=== PATIENT | female | born 1935 | race Caucasian/White ===

== ENCOUNTER 2016-12-18 03:58 | Inpatient (IN) | payer MEDICARE, OTHER ==
[2016-12-18] VITALS (7 sets, daily range): BP systolic 147–188; BP diastolic 65–95; PULSE 58–98; RESP 14–20; O2SAT 93–99
[~2016-12-18] VITALS: Ht 152.4 cm; Wt 85.7 kg
[~2016-12-18 03:58] MED LIST: DIGO125T73 PO; GABA-500 PO; GABA-502 PO; GLPZ5T PO; INSLIS SUBQ; INSU100V7 SUBQ; LOSA25TA21 PO; METF1000 PO; NITR0.4T SL; RANI150C4 PO; ROSU5TAB PO; SOTA160T PO; WARF2TAB7 PO; WARF4TAB6 PO
--- NOTE | 2016-12-18 04:11 | ED.REPORT ---
HPI-Abd Pain F 40 and Over Date of Service Dec 18, 2016 ED Provider: Dr. Rancho Fuchs M.D. A 81 year old female with a history of diabetes, spinal stenosis, hypertension, hyperlipidemia, severe peripheral vascular disease, and atrial fibrillation on warfarin presents to the ED via EMS with back pain onset just prior to arrival, waking her up. The patient also reports abdominal pain as well as chronic arthritis and chronic numbness of the hands and feet. She denies shooting or radiating leg pain or other sciatic symptoms. Denies any urinary symptoms. EMS found the patient with a BP of 181/110 and otherwise normal vital signs. She was given 50mcg fentanyl en route. Nursing Notes Stated Complaint: BACK/ ABD PAIN Chief Complaint: Female Abdominal Pain Nursing Notes Reviewed: Yes Allergies: Coded Allergies: VIKA Inhibitors (Verified Allergy, Unknown, cough, 07/18/16) niacin (Verified Allergy, Unknown, flushing, 07/18/16) pantoprazole (Verified Allergy, Unknown, pancreatitis, 07/18/16) lorazepam (Verified Adverse Reaction, Severe, REQUIRED INTUBATION TOO DIFF. TO AWAKEN, 07/18/16) Scheduled Digoxin (Digoxin) 125 Mcg Tablet 125 MCG PO DAILY Gabapentin (Gabapentin) 100 Mg Capsule 100 MG PO AM Gabapentin (Gabapentin) 300 Mg Capsule 300 MG PO HS Glipizide (Glipizide) 5 Mg Tablet 10 MG PO BID Insulin Human Lispro (HumaLOG U100 Insulin Vial) 100 Unit/Ml Unit Unknown Dose SUBQ per sliding scale Check blood sugars before meals and at bedtime. Use correction factor only before meals. Blood Sugar Lispro Correction: <151, 0 units; 151-175, 1 unit; 176-200, 2 units; 201-225, 3 units; 226-250, 4 units; 251-275, 5 units; 276-300 , 6 units; 301-325, 7 units; 326-350, 8 units; 351-375, 9 units; 376-400, 10 units; >400, 12 units. Metformin (Glucophage) 1,000 Mg Tablet 500 MG PO BID Ranitidine (Ranitidine) 150 Mg Capsule 150 MG PO BID Rosuvastatin Calcium (Crestor) 5 Mg Tablet 5 MG PO Q2DAY Sotalol HCl (Sotalol) 160 Mg Tablet 160 MG PO BID Warfarin Sodium (Warfarin Sodium) 2 Mg Tablet 2 MG PO 5 x weeks Warfarin Sodium (Warfarin Sodium) 4 Mg Tablet 4 MG PO 2Xweekly Mon and Fri Scheduled PRN Insulin Glargine (Lantus U100 Insulin Vial) 100 Unit/Ml Vial 32 UNIT SUBQ BID PRN PRN diabetes Nitroglycerin SL (Nitrostat) 0.4 Mg Tab.subl 0.4 MG SL Q5MIN PRN PRN For Chest Pain Miscellaneous Medications Losartan Potassium (Losartan Potassium) 25 Mg Tablet 25 MG PO General Time Seen by MD: 04:10 Chief Complaint Other (Back Pain) Hx Obtained From: Patient Arrived By: Ambulance Sudden in Onset?: Yes Onset Occurred: Just prior to arrival Context of Onset: Sleeping Symptom Duration: Since onset Location: : Back: Diffuse Associated with: Denies: Diarrhea, Fever, Vomiting Pertinent Negative: Relieved by nothing Context Related History: Reports: Abdominal surgery Recent Healthcare: No recent doctor visit Past Medical History Past Medical History High cholesterol Vitiligo Diabetes Hypertension Atrial fibrillation Spinal stenosis Peripheral vascular disease Diabetic neuropathy severe Osteomyelitis finger Chronic renal insufficiency Past Surgical History Amputation of right distal phalynx Reports: Cholecystectomy Family History non-contributory Smoking History Never Smoker Social History Alcohol Use: Denies alcohol use Drug Use: Denies drug use Ambulatory Status Walker Review of Systems + Chronic arthritis - Stabbing leg pain Respiratory: Denies: Non-productive cough, Shortness of breath GI: Reports: Abdominal pain, Denies: Diarrhea, Vomiting Musculoskeletal: Reports: Back pain Complete sys rev & neg: except as marked. Neurologic: Reports: Numbness (Hands and feet, baseline) Physical Exam Vital Signs Vital Signs (First) Date Time Temp Pulse Resp B/P Pulse Ox O2 Delivery O2 Flow Rate FiO2 12/18/16 04:05 37.0 64 14 167/74 93 Room Air Initial VS: Reviewed Head / Eyes: Atraumatic, Normocephalic Skin: Warm, Dry, No cyanosis Neurologic: Alert, Oriented, Nonfocal Psychiatric: Mood/affect normal, Behavior normal, Normal thought content General/Constitutional: Awake, Alert, No acute distress Distress / Hydration: Positive: Dehydration mild Respiratory / Chest: Breath sounds NL, Breath sounds = bilat, No respiratory distress Cardiovascular: Heart rate NL, Regular rhythm, Heart sounds NL Periph CV / BP Differential: Positive: Capillary refill delayed Abdomen: Soft, Non-tender Back: Atraumatic Flank / Spine / Paraspinal: Positive: Lumbar spine tender..., Sacral spine tender... ENT: Airway patent Mouth: Positive: Mucous membranes dry Upper Extremity / MS: Full range of motion, Non-tender, No edema Vascular changes Necrotic black lesion of previous amputated right index finger Lower Extremity / Pelvis / MS: Full range of motion, Non-tender, No edema Vascular changes bilaterally Interpretation & Diagnostics URINE DIPSTICK: 1.015 sp gravity 5 pH Trace Leukocytes 250mg/dl Glucose ++ Moderate Ketones Normal Urobilinogen ~ 250 Patrice/ml Blood Otherwise Negative Lab Results Interpretation Result Diagram: 12/18/16 0420 12/18/16 042 Test 12/18/16 04:20 12/18/16 05:10 White Blood Count 12.0th/mm3 (3.8-10.1) Red Blood Count 4.72mil/mm3 (3.90-5.20) Hemoglobin 14.5g/dL (12.0-15.6) Hematocrit 44.8% (35.0-46.0) Mean Corpuscular Volume 94.9fL (81-100) Mean Corpuscular Hemoglobin 30.7pg (27.0-35.0) Mean Corpuscular Hemoglobin Concent 32.4% (32.0-37.0) Red Cell Distribution Width 14.2% (12.3-15.4) Platelet Count 152bil/L (150-400) Neutrophils (%) (Auto) 77.8% (40-74) Lymphocytes (%) (Auto) 12.7% (14-46) Monocytes (%) (Auto) 7.3% (4-12) Eosinophils (%) (Auto) 1.6% (0-5) Basophils (%) (Auto) 0.3% (0-3) Prothrombin Time 23.2sec (8.1-12.5) Prothromb Time International Ratio 2.13ratio Hold Blue Top Tube Received (Received) Sodium Level 141mEq/L (134-144) Potassium Level 4.5mEq/L (3.5-5.2) Chloride Level 103mEq/L (97-108) Carbon Dioxide Level 25mmol/L (18-29) Blood Urea Nitrogen 22mg/dL (8-27) Creatinine 1.25mg/dL (0.57-1.00) Estimat Glomerular Filtration Rate 59mL/min (>59) Glucose Level 216mg/dL (60-99) Calcium Level 8.8mg/dL (8.5-10.1) Magnesium Level 1.9mg/dL (1.6-2.6) Total Bilirubin 0.3mg/dL (0.0-1.2) Aspartate Amino Transf (AST/SGOT) 17U/L (0-50) Alanine Aminotransferase (ALT/SGPT) 19U/L (0-32) Alkaline Phosphatase 65U/L (25-165) Total Protein 6.5g/dL (6.4-8.4) Albumin 3.9g/dL (3.4-5.0) Lipase 49U/L (13-60) Hold Red Top Tube Received (Received) Hold Ibrahim Top Tube Received (Received) Digoxin Level 0.7nG/mL (0.9-2.0) Urine Color Bloody (YELLOW) Urine Appearance Cloudy (CLEAR,HAZY) Urine pH 6.0 (5.0-8.0) Urine Specific [place] 1.025 (1.003-1.035) Urine Protein 100mg/dL (NEG,TRACE) Urine Glucose (UA) 100mg/dL (NEGATIVE) Urine Ketones Negativemg/dL (NEGATIVE) Urine Occult Blood Large (NEGATIVE) Urine Nitrite Negative (NEGATIVE) Urine Bilirubin Negative (NEGATIVE) Urine Urobilinogen Normalmg/dL (NORMAL) Urine Leukocyte Esterase Trace (NEGATIVE) Urine RBC Packed/hpf (0-2) Urine WBC 0-5/hpf (0-5) Urine Epithelial Cells Few/hpf (NONE-MOD) Urine Crystals None seen (NONE SEEN) Urine Bacteria Moderate/hpf (NONE-FEW) Urine Hyaline Casts Rare/lpf (NONE) Urine Granular Casts None seen (NONE SEEN) Urine Waxy Casts None seen (NONE SEEN) Urine Red Blood Cell Casts None seen (NONE SEEN) Urine White Blood Cell Casts None seen (NONE SEEN) Urine Mucus None seen (None Seen) Urine Trichomonas None seen (NONE SEEN) Urine Yeast None (NONE SEEN) Urinalysis Comment None Urine Culture Reflexed Indicated Lab Results Interpretation: Urine is grossly bloody with minimal white cells. CT shows multiple stones layering along the right renal pelvis and possibly a stone distally, but without hydronephrosis. The kidney itself is swollen, with stranding all about suggesting prolonged hydronephrosis. Re-Eval/Medical Decision Med Decision/Clinical Course 81-year-old with severe diabetes and vascular disease and renal insufficiency, presents with flank pain and hematuria, improves to have multiple small stones in the right kidney. It appeared appears the right kidney itself is abnormal with stranding all about, enlarged parenchyma without current hydronephrosis. What appears to be a staghorn calculus resolves to multiple very small stones in the renal pelvis, which are clearly mobile and layering out. We can anticipate she will pass many of these in the near-term future. Source of Hx: Old records Re-Evaluation/Progress : Time of Eval: 05:01 Patient Status: Condition improved Re-Evaluation/Progress Note: Patient rechecked. Discussed patient's case with her family. Counseled Regarding: Diagnosis, Lab results Discharge & Departure Shift Change Sign-Out Response to Therapy: Improved Primary Impression: Ureteral colic Additional Impressions: Nephrolithiasis Renal insufficiency Unspecified hydronephrosis Anticoagulated on Coumadin Disposition: ADMITTED TO HOSPITAL Discharge Condition All VS Reviewed: Yes Condition: Improved Referrals: Jenae Burton MD (PCP) Sylvia Attestation Portions of this note were transcribed by Heather Cardona. I, Dr. Fuchs, personally performed the history, physical exam, and medical decision-making; I reviewed and confirmed the accuracy of the information in the transcribed note. Signed by: Sylvia Dominguez, 12/18/2016, 06:05 copies to: Jenae Burton MD, Christopher W MD Dec 18, 2016 04:11 HEATHER CARDONA Dec 18, 2016 04:20
[2016-12-18 04:37] LABS: BASOPHILS % (AUTO) 0.3 % (0-3); EOSINOPHILS % (AUTO) 1.6 % (0-5); MONOCYTES % (AUTO) 7.3 % (4-12); Mean Corpuscular Hemoglobin 30.7 pg (27.0-35.0); Mean Corpuscular Volume 94.9 fL (81-100); NEUTROPHILS % (AUTO) 77.8 % (40-74); Platelet Count 152 bil/L (150-400)
[2016-12-18 04:51] LABS: Magnesium 1.9 mg/dL (1.6-2.6)
[2016-12-18 05:27] LABS: APPEARANCE,URINE CLOUDY (CLEAR,HAZY); COLOR,URINE BLOODY (YELLOW); OCCULT BLOOD,URINE LARGE (NEGATIVE); UROBILINOGEN,URINE NORMAL (NORMAL)
[2016-12-18 05:38] LABS: INR 2.13 ratio
[2016-12-18] MEDS ORDERED: 0.9% Sodium Chloride 1,000 ML IV SCH (07:46)
[2016-12-18] MEDS ORDERED: Ondansetron 2 mg/mL 2 mL Inj IVPUSH PRN ×2 (07:50→15:30)
[2016-12-18] MEDS ORDERED: Alum-Mag Hydrox-Simeth 30 mL Suspension PO PRN ×2 (07:50→15:30)
--- NOTE | 2016-12-18 08:38 | NUR ---
Admit from ER Report received from ER nurse. patient at [facility]. denies pain or discomfort to abdomen at this time. will continue to monitor pain. Admit nurse at bed side.
[2016-12-18] MEDS ORDERED: INSU100V7 SUBQ (08:52)
[2016-12-18] MEDS ORDERED: METF500T4 PO (08:56)
[2016-12-18] MEDS ORDERED: ATRV10T PO (08:56)
--- NOTE | 2016-12-18 09:12 | DRSVH ---
PROCEDURE: CT ABDOMEN AND PELVIS WITHOUT CONTRAST ([id number]) INDICATIONS: Right flank pain and hematuria TECHNIQUE: After the administration of oral contrast, 5 mm thick sections acquired from the diaphragms to the sy mphysis. 5 mm coronal and sagittal reformats were performed. For radiation dose reduction, the foll owing was used: automated exposure control, adjustment of mA and/or kV according to patient size. COMPARISON: None. FINDINGS: Image quality: Excellent. ABDOMEN: Lung bases: Lung bases are clear. Heart size is borderline enlarged. Solid organs: Liver and spleen are normal in size. Gallbladder is surgically absent. Pancreas is n ormal in size. No adrenal nodules. There is asymmetric enlargement of the right kidney with perinephric stranding and fluid. Multiple re nal stones are identified in the right kidney including numerous small layering stones in the right r enal pelvis. No hydronephrosis or definite ureteral stones. No left renal stones or hydronephrosis. Peritoneum and bowel: Bowel loops demonstrate normal wall thickness and caliber. The appendix is nor mal in appearance. No free fluid or air. Nodes and vessels: No retroperitoneal or mesenteric adenopathy by size criteria. Aorta and inferior vena cava are normal in size. Miscellaneous: No ventral hernias. PELVIS: Genitourinary: There are numerous small foci of calcifications in the uterus. There is a small right ovarian cyst. The bladder wall is normal in thickness. No calcified bladder stones. Miscellaneous: No inguinal hernias or adenopathy. Bones: No suspicious bony lesions. There is periarticular sclerosis along the sacroiliac joints with mild erosive changes inferiorly. No vertebral body compression fractures. IMPRESSION: 1. Right nephrolithiasis with perinephric stranding and fluid but no definite obstructing ureteral st one identified. The findings may represent sequelae of a recently passed stone but the differential includes pyelonephritis. Recommend correlation clinically. Findings discussed with Dr. Guevara on 12/18/16 at 9:10 AM. Dictated by: Denzel Partida M.D. on 12/18/2016 at 8:40 Approved by: Denzel Partida M.D. on 12/18/2016 at 9:10
[2016-12-18] MEDS: cefTRIAXone Inj 2,000 MG in Dextrose 5% Minibag Plus 50 ML IV SCH (10:30)
--- NOTE | 2016-12-18 13:04 | NUR ---
Mentation/pain patient is alert and oriented X3. Able to make needs known. Stable vitals signs. Denies pain or discomfort to abdomen or flank pain. patient states," i hope that pain does not come back, i have no pain now." IV infusing to left arm with IF fluids as ordered by doctor. patient ate breakfast and denies pain to abdomen. family at bed side and asking about doctor. paged doctor and aware. family will bring CPAP from home this evening. call light with in reach for safety and verbalize the use of call light. Stable oxygen room air. patient's right finger next to thumb has small black blister and patient states," i burnt it about week ago accidentally when i was cooking." blister is clean dry intact with no open areas or drainage. lung sounds clear bilaterally. last BM yesterday per patient report. Continue to monitor abdomen pain, vital signs , and safety.
[2016-12-18] MEDS ORDERED: HYDROcodone-APAP 5-325 mg Tablet PO PRN (15:25)
[2016-12-18] MEDS ORDERED: HYDROmorphone 1 mg/mL Inj IVPUSH PRN (15:25)
[2016-12-18] MEDS ORDERED: Polyethylene Glycol (PEG) 17 Gm Powder PO PRN (15:30)
[2016-12-18] MEDS ORDERED: hydrALAZINE 20 mg/mL Inj IV PRN (15:45)
[2016-12-18] MEDS ORDERED: Glucose 40% Oral Gel 15 Gm Tube PO PRN (15:45)
--- NOTE | 2016-12-18 15:53 | PCM.HPMED ---
Subjective Date of Service Dec 18, 2016 Primary Provider: Admitting Physician: Lisa Guevara MD Primary Care Physician: Rufus Bazzi DO Attending Physician: Lisa Guevaar MD Admit Status: From the Emergency Department, Full Admit Chief Complaint: Right flank pain History of Present Illness: This is a 81-year-old female who awoke in the middle of the night with right sided flank pain. She also did notice some blood in her urine after she came to the emergency room. Her UA here did have many red blood cells with small amount of WBCs and moderate bacteria and few epithelial cells. She also had trace leukocyte esterase along with negative nitrites She denies any fevers chills did have some nausea but no vomiting. The nausea has resolved. She denies any history of known history of kidney stones. Her evaluation here includes a CT of abdomen and pelvis with contrast which results are as below: IMPRESSION: 1. Right nephrolithiasis with perinephric stranding and fluid but no definite obstructing ureteral stone identified. The findings may represent sequelae of a recently passed stone but the differential includes pyelonephritis. Recommend correlation clinically. Findings discussed with Dr. Guevara on 12/18/16 at 9:10 AM. Dictated by: Denzel Partida M.D. on 12/18/2016 at 8:40 Approved by: Denzel Partida M.D. on 12/18/2016 at 9:10 Review of Systems: All other review of systems are reviewed and are negative except for as in history of present illness Allergies Coded Allergies: VIKA Inhibitors (Verified Allergy, Unknown, cough, 07/18/16) niacin (Verified Allergy, Unknown, flushing, 07/18/16) pantoprazole (Verified Allergy, Unknown, pancreatitis, 07/18/16) lorazepam (Verified Adverse Reaction, Severe, REQUIRED INTUBATION TOO DIFF. TO AWAKEN, 07/18/16) Home Medications Scheduled Digoxin (Digoxin) 125 Mcg Tablet 125 MCG PO DAILY Gabapentin (Gabapentin) 100 Mg Capsule 100 MG PO AM Gabapentin (Gabapentin) 300 Mg Capsule 300 MG PO HS Glipizide (Glipizide) 5 Mg Tablet 10 MG PO BID Insulin Human Lispro (HumaLOG U100 Insulin Vial) 100 Unit/Ml Unit Unknown Dose SUBQ per sliding scale Check blood sugars before meals and at bedtime. Use correction factor only before meals. Blood Sugar Lispro Correction: <151, 0 units; 151-175, 1 unit; 176-200, 2 units; 201-225, 3 units; 226-250, 4 units; 251-275, 5 units; 276-300 , 6 units; 301-325, 7 units; 326-350, 8 units; 351-375, 9 units; 376-400, 10 units; >400, 12 units. Metformin (Glucophage) 1,000 Mg Tablet 500 MG PO BID Ranitidine (Ranitidine) 150 Mg Capsule 150 MG PO BID Rosuvastatin Calcium (Crestor) 5 Mg Tablet 5 MG PO Q2DAY Sotalol HCl (Sotalol) 160 Mg Tablet 160 MG PO BID Warfarin Sodium (Warfarin Sodium) 2 Mg Tablet 2 MG PO 5 x weeks Warfarin Sodium (Warfarin Sodium) 4 Mg Tablet 4 MG PO 2Xweekly Mon and Fri Scheduled PRN Insulin Glargine (Lantus U100 Insulin Vial) 100 Unit/Ml Vial 32 UNIT SUBQ BID PRN PRN diabetes Nitroglycerin SL (Nitrostat) 0.4 Mg Tab.subl 0.4 MG SL Q5MIN PRN PRN For Chest Pain Miscellaneous Medications Losartan Potassium (Losartan Potassium) 25 Mg Tablet 25 MG PO PMH Past Medical History High cholesterol Vitiligo Diabetes Hypertension Atrial fibrillation Spinal stenosis Peripheral vascular disease Diabetic neuropathy severe Osteomyelitis finger Chronic renal insufficiency Past Surgical History Amputation of right distal phalynx Reports: Cholecystectomy Family History History of diabetes Social History Hx Alcohol Use: No Hx Substance Use: No Hx Tobacco Use: No Smoking Status: Never Smoker Living Arrangement: with Family Exam Vital Signs Vital Sign - Last Date Time Temp Pulse Resp B/P Pulse Ox O2 Delivery O2 Flow Rate FiO2 12/18/16 13:57 36.6 58 18 188/68 96 Room Air Exam Constitutional: Obese female in no acute distress Head: Normocephalic atraumatic Eyes: PERRLA DC EOMI Neck: No adenopathy Chest: Clear to auscultation Cor: Regular rate and rhythm S1-S2 Abdomen: Obese soft nontender bowel sounds present. There is some tenderness over the right costovertebral angle to palpation Extremities: Trace bilateral pedal edema Skin: No rashes Psych: Mood and affect appropriate Neuro: Alert and oriented 3, motor strength is intact bilaterally Lab and Diagnostics Labs Laboratory Tests 72 Hours Test 12/18/16 04:20 12/18/16 05:10 White Blood Count 12.0th/mm3 (3.8-10.1) Red Blood Count 4.72mil/mm3 (3.90-5.20) Hemoglobin 14.5g/dL (12.0-15.6) Hematocrit 44.8% (35.0-46.0) Mean Corpuscular Volume 94.9fL (81-100) Mean Corpuscular Hemoglobin 30.7pg (27.0-35.0) Mean Corpuscular Hemoglobin Concent 32.4% (32.0-37.0) Red Cell Distribution Width 14.2% (12.3-15.4) Platelet Count 152bil/L (150-400) Neutrophils (%) (Auto) 77.8% (40-74) Lymphocytes (%) (Auto) 12.7% (14-46) Monocytes (%) (Auto) 7.3% (4-12) Eosinophils (%) (Auto) 1.6% (0-5) Basophils (%) (Auto) 0.3% (0-3) Prothrombin Time 23.2sec (8.1-12.5) Prothromb Time International Ratio 2.13ratio Hold Blue Top Tube Received (Received) Sodium Level 141mEq/L (134-144) Potassium Level 4.5mEq/L (3.5-5.2) Chloride Level 103mEq/L (97-108) Carbon Dioxide Level 25mmol/L (18-29) Blood Urea Nitrogen 22mg/dL (8-27) Creatinine 1.25mg/dL (0.57-1.00) Estimat Glomerular Filtration Rate 59mL/min (>59) Glucose Level 216mg/dL (60-99) Calcium Level 8.8mg/dL (8.5-10.1) Magnesium Level 1.9mg/dL (1.6-2.6) Total Bilirubin 0.3mg/dL (0.0-1.2) Aspartate Amino Transf (AST/SGOT) 17U/L (0-50) Alanine Aminotransferase (ALT/SGPT) 19U/L (0-32) Alkaline Phosphatase 65U/L (25-165) Total Protein 6.5g/dL (6.4-8.4) Albumin 3.9g/dL (3.4-5.0) Lipase 49U/L (13-60) Hold Red Top Tube Received (Received) Hold Ibrahim Top Tube Received (Received) Digoxin Level 0.7nG/mL (0.9-2.0) Urine Color Bloody (YELLOW) Urine Appearance Cloudy (CLEAR,HAZY) Urine pH 6.0 (5.0-8.0) Urine Specific [place] 1.025 (1.003-1.035) Urine Protein 100mg/dL (NEG,TRACE) Urine Glucose (UA) 100mg/dL (NEGATIVE) Urine Ketones Negativemg/dL (NEGATIVE) Urine Occult Blood Large (NEGATIVE) Urine Nitrite Negative (NEGATIVE) Urine Bilirubin Negative (NEGATIVE) Urine Urobilinogen Normalmg/dL (NORMAL) Urine Leukocyte Esterase Trace (NEGATIVE) Urine RBC Packed/hpf (0-2) Urine WBC 0-5/hpf (0-5) Urine Epithelial Cells Few/hpf (NONE-MOD) Urine Crystals None seen (NONE SEEN) Urine Bacteria Moderate/hpf (NONE-FEW) Urine Hyaline Casts Rare/lpf (NONE) Urine Granular Casts None seen (NONE SEEN) Urine Waxy Casts None seen (NONE SEEN) Urine Red Blood Cell Casts None seen (NONE SEEN) Urine White Blood Cell Casts None seen (NONE SEEN) Urine Mucus None seen (None Seen) Urine Trichomonas None seen (NONE SEEN) Urine Yeast None (NONE SEEN) Urinalysis Comment None Urine Culture Reflexed Indicated Result Diagram: 12/18/1641912/18/16419 X-Rays, CTs and MRIs PROCEDURE: CT ABDOMEN AND PELVIS WITHOUT CONTRAST ([id number]) INDICATIONS: Right flank pain and hematuria TECHNIQUE: After the administration of oral contrast, 5 mm thick sections acquired from the diaphragms to the symphysis. 5 mm coronal and sagittal reformats were performed. For radiation dose reduction, the following was used: automated exposure control, adjustment of mA and/or kV according to patient size. COMPARISON: None. FINDINGS: Image quality: Excellent. ABDOMEN: Lung bases: Lung bases are clear. Heart size is borderline enlarged. Solid organs: Liver and spleen are normal in size. Gallbladder is surgically absent. Pancreas is normal in size. No adrenal nodules. There is asymmetric enlargement of the right kidney with perinephric stranding and fluid. Multiple renal stones are identified in the right kidney including numerous small layering stones in the right renal pelvis. No hydronephrosis or definite ureteral stones. No left renal stones or hydronephrosis. Peritoneum and bowel: Bowel loops demonstrate normal wall thickness and caliber. The appendix is normal in appearance. No free fluid or air. Nodes and vessels: No retroperitoneal or mesenteric adenopathy by size criteria. Aorta and inferior vena cava are normal in size. Miscellaneous: No ventral hernias. PELVIS: Genitourinary: There are numerous small foci of calcifications in the uterus. There is a small right ovarian cyst. The bladder wall is normal in thickness. No calcified bladder stones. Miscellaneous: No inguinal hernias or adenopathy. Bones: No suspicious bony lesions. There is periarticular sclerosis along the sacroiliac joints with mild erosive changes inferiorly. No vertebral body compression fractures. IMPRESSION: 1. Right nephrolithiasis with perinephric stranding and fluid but no definite obstructing ureteral stone identified. The findings may represent sequelae of a recently passed stone but the differential includes pyelonephritis. Recommend correlation clinically. Findings discussed with Dr. Guevara on 12/18/16 at 9:10 AM. Dictated by: Denzel Partida M.D. on 12/18/2016 at 8:40 Approved by: Denzel Partida M.D. on 12/18/2016 at 9:10 Assessment & Plan # Possible pyelonephritis, acute, present on admission Initiate IV Rocephin 2 g daily Await urine culture and sensitivities IV fluid hydration #Hematuria, acute, present on admission May be related to above workup be secondary to possible renal stone as her R many of them seen but none within the ureter and one may have passed Strain urine Urology consult at by SHIRLEY Hayden # Atrial fibrillation, chronic, present on admission Continue with current medication regimen # Anticoagulation on warfarin, chronic, present on admission Pharmacy to manage # Type II diabetes, chronic, present on admission Continue with home regimen but will hold her metformin Placed on subcutaneous lispro medium dose protocol # DVT prophylaxis Therapeutic warfarin # CODE STATUS Full code Time spent 60 minutes Lisa Guevara MD Dec 18, 2016 15:53
--- NOTE | 2016-12-18 16:31 | PCM.CONPHA ---
Subjective Right flank pain Reason for Pharmacy Consult: Anticoagulation Management Assessment/Plan Assessment/Plan Warfarin Management by Pharmacy Indication: AFIB CHADS2-VASc: 6 Home Dose: Warfarin 4 mg Mon/Fri, 2 mg AOD INR Goal: 2-3 Duration: Unknown Wt: 84 kg Anticoagulation Trends Lab Date Result Dose INR 12/18/16 2.13 Therapeutic bridge therapy: No Assessment/Plan - Therapeutic INR. -Will initiate warfarin 4 mg tonight and continue with home regimen. -Pharmacy to monitor INR/CBC/signs of bleeding while inpatient. Wilfrido, Morro Macedo Pharm.D. Morro Macedo Dec 18, 2016 16:31
--- NOTE | 2016-12-18 16:41 | NUR ---
Elevated SBP Doctor aware r/t before dinner blood sugar and elevated SBP. PRN Given as ordered. will recheck BP.
--- NOTE | 2016-12-18 17:39 | NUR ---
BP after PRN Hydralazine BP 176/67, pulse 84. notified Doctor and verbal orders received," Hydralazine one time 10 mg IV."
[2016-12-18] MEDS ORDERED: hydrALAZINE 20 mg/mL Inj IV ONE (18:15)
[2016-12-18] MEDS: Insulin LISPRO 300 Unit/3 mL Inj SUBQ SCH ×2 (18:27→22:00)
--- NOTE | 2016-12-18 19:27 | NUR ---
Follow up BP BP 147/70 and pulse 82.
[2016-12-18] MEDS: 0.9% Sodium Chloride 1,000 ML IV SCH (22:07)
[2016-12-18] MEDS: Insulin GLARgine 100 Unit/mL Syringe SUBQ SCH (22:09)
[2016-12-19 00:40] VITALS: BP 110/65; PULSE 67; RESP 18; O2SAT 94
[2016-12-19] MEDS: 0.9% Sodium Chloride 1,000 ML IV SCH ×2 (01:30→07:15)
[2016-12-19 05:31] VITALS: BP 97/54; PULSE 66; RESP 16; O2SAT 95
[2016-12-19 06:13] VITALS: BP 134/66; PULSE 71; RESP 16; O2SAT 97
[2016-12-19 07:35] LABS: BASOPHILS % (AUTO) 0.5 % (0-3); EOSINOPHILS % (AUTO) 2.2 % (0-5); MONOCYTES % (AUTO) 10.7 % (4-12); Mean Corpuscular Hemoglobin 30.5 pg (27.0-35.0); Mean Corpuscular Volume 91.4 fL (81-100); NEUTROPHILS % (AUTO) 62.8 % (40-74); Platelet Count 152 bil/L (150-400)
[2016-12-19 07:55] LABS: INR 2.47 ratio
[2016-12-19] MEDS: Insulin LISPRO 300 Unit/3 mL Inj SUBQ SCH ×2 (08:00→12:00)
--- NOTE | 2016-12-19 09:02 | PCM.CONPHA ---
Subjective Right flank pain Objective Vital Signs Date Time Temp Pulse Resp B/P Pulse Ox O2 Delivery O2 Flow Rate FiO2 12/19/16 06:13 12/19/16 05:31 36.3 66 16 97/54 95 CPAP 12/19/16 00:40 36.0 67 18 110/65 94 CPAP 12/18/16 21:15 36.8 98 20 164/95 99 Nasal Cannula 2.00 12/18/16 20:00 Supplement Oxygen 12/18/16 19:28 82 147/70 12/18/16 16:27 36.4 63 15 178/65 94 Room Air 12/18/16 13:57 36.6 58 18 188/68 96 Room Air Intake and Output 12/17/16 12/18/16 12/19/16 00:00 00:00 00:00 Intake Total 1814 ml Output Total 400 ml Balance 1414 ml Weight (Kilograms): 85.700 Height (Feet): 5 Height (Inches): 0.00 Test 12/18/16 04:20 12/18/16 05:10 12/19/16 06:29 Hold Blue Top Tube Received (Received) Hemoglobin A1c 7.4% (4.8-5.6) Magnesium Level 1.9mg/dL (1.6-2.6) Lipase 49U/L (13-60) Hold Red Top Tube Received (Received) Hold Ibrahim Top Tube Received (Received) Digoxin Level 0.7nG/mL (0.9-2.0) Urine Color Bloody (YELLOW) Urine Appearance Cloudy (CLEAR,HAZY) Urine pH 6.0 (5.0-8.0) Urine Specific [place] 1.025 (1.003-1.035) Urine Protein 100mg/dL (NEG,TRACE) Urine Glucose (UA) 100mg/dL (NEGATIVE) Urine Ketones Negativemg/dL (NEGATIVE) Urine Occult Blood Large (NEGATIVE) Urine Nitrite Negative (NEGATIVE) Urine Bilirubin Negative (NEGATIVE) Urine Urobilinogen Normalmg/dL (NORMAL) Urine Leukocyte Esterase Trace (NEGATIVE) Urine RBC Packed/hpf (0-2) Urine WBC 0-5/hpf (0-5) Urine Epithelial Cells Few/hpf (NONE-MOD) Urine Crystals None seen (NONE SEEN) Urine Bacteria Moderate/hpf (NONE-FEW) Urine Hyaline Casts Rare/lpf (NONE) Urine Granular Casts None seen (NONE SEEN) Urine Waxy Casts None seen (NONE SEEN) Urine Red Blood Cell Casts None seen (NONE SEEN) Urine White Blood Cell Casts None seen (NONE SEEN) Urine Mucus None seen (None Seen) Urine Trichomonas None seen (NONE SEEN) Urine Yeast None (NONE SEEN) Urinalysis Comment None Urine Culture Reflexed Indicated White Blood Count 8.7th/mm3 (3.8-10.1) Red Blood Count 4.29mil/mm3 (3.90-5.20) Hemoglobin 13.1g/dL (12.0-15.6) Hematocrit 39.2% (35.0-46.0) Mean Corpuscular Volume 91.4fL (81-100) Mean Corpuscular Hemoglobin 30.5pg (27.0-35.0) Mean Corpuscular Hemoglobin Concent 33.4% (32.0-37.0) Red Cell Distribution Width 14.7% (12.3-15.4) Platelet Count 152bil/L (150-400) Neutrophils (%) (Auto) 62.8% (40-74) Lymphocytes (%) (Auto) 23.3% (14-46) Monocytes (%) (Auto) 10.7% (4-12) Eosinophils (%) (Auto) 2.2% (0-5) Basophils (%) (Auto) 0.5% (0-3) Prothrombin Time 26.9sec (8.1-12.5) Prothromb Time International Ratio 2.47ratio Sodium Level 141mEq/L (134-144) Potassium Level 4.2mEq/L (3.5-5.2) Chloride Level 106mEq/L (97-108) Carbon Dioxide Level 23mmol/L (18-29) Blood Urea Nitrogen 21mg/dL (8-27) Creatinine 0.96mg/dL (0.57-1.00) Estimat Glomerular Filtration Rate 80mL/min (>59) Glucose Level 143mg/dL (60-99) Calcium Level 8.5mg/dL (8.5-10.1) Total Bilirubin 0.3mg/dL (0.0-1.2) Aspartate Amino Transf (AST/SGOT) 16U/L (0-50) Alanine Aminotransferase (ALT/SGPT) 15U/L (0-32) Alkaline Phosphatase 54U/L (25-165) Total Protein 5.4g/dL (6.4-8.4) Albumin 3.0g/dL (3.4-5.0) Assessment/Plan Assessment/Plan Date -Dec 19-Nov INR 2.13 2.47 INR change 0.34 Warf Dose 4 MG 2 Cyrus Doshi Dec 19, 2016 09:02
--- NOTE | 2016-12-19 09:26 | PCM.DIMED ---
Discharge Instructions Date of Service Dec 19, 2016 Dates of Hospitalization Dec 18, 2016 at 07:30 Discharge Diagnosis Discharge Diagnosis Acute flank pain,nephrolithiasis ,possible pyelonephritis Diet Diabetic Activity Other (as tolerated) Call your provider Fever or Chills, Chest pain, Excessive diarrhea, Weakness (unilateral) Patient Instructions Follow-up with PCP in: 1 week Lisa Guevara MD Dec 19, 2016 09:26
[2016-12-19] MEDS ORDERED: CEPH-512 PO (09:29)
[2016-12-19 09:39] VITALS: BP 114/59; PULSE 63; RESP 18; O2SAT 96
[2016-12-19] MEDS: cefTRIAXone Inj 2,000 MG in Dextrose 5% Minibag Plus 50 ML IV SCH (10:16)
[2016-12-19 10:18] VITALS: PULSE 92
--- NOTE | 2016-12-19 10:19 | PCM.DC.MED ---
Discharge Summary Date of Service Dec 19, 2016 Dates of Hospitalization Date of Hospital Admission Dec 18, 2016 at 07:30 Date of Discharge: Dec 19, 2016 Providers: Admitting Physician: Lisa Guevara MD Primary Care Physician: Rufus Bazzi DO Attending Physician: Lisa Guevara MD Diagnosis at Time of Discharge Diagnosis at Time of Discharge Acute flank pain,nephrolithiasis ,possible pyelonephritis Consultations Urology consultation which did not get done while in-house Procedures XRay, CTs & MRIs PROCEDURE: CT ABDOMEN AND PELVIS WITHOUT CONTRAST ([id number]) INDICATIONS: Right flank pain and hematuria TECHNIQUE: After the administration of oral contrast, 5 mm thick sections acquired from the diaphragms to the symphysis. 5 mm coronal and sagittal reformats were performed. For radiation dose reduction, the following was used: automated exposure control, adjustment of mA and/or kV according to patient size. COMPARISON: None. FINDINGS: Image quality: Excellent. ABDOMEN: Lung bases: Lung bases are clear. Heart size is borderline enlarged. Solid organs: Liver and spleen are normal in size. Gallbladder is surgically absent. Pancreas is normal in size. No adrenal nodules. There is asymmetric enlargement of the right kidney with perinephric stranding and fluid. Multiple renal stones are identified in the right kidney including numerous small layering stones in the right renal pelvis. No hydronephrosis or definite ureteral stones. No left renal stones or hydronephrosis. Peritoneum and bowel: Bowel loops demonstrate normal wall thickness and caliber. The appendix is normal in appearance. No free fluid or air. Nodes and vessels: No retroperitoneal or mesenteric adenopathy by size criteria. Aorta and inferior vena cava are normal in size. Miscellaneous: No ventral hernias. PELVIS: Genitourinary: There are numerous small foci of calcifications in the uterus. There is a small right ovarian cyst. The bladder wall is normal in thickness. No calcified bladder stones. Miscellaneous: No inguinal hernias or adenopathy. Bones: No suspicious bony lesions. There is periarticular sclerosis along the sacroiliac joints with mild erosive changes inferiorly. No vertebral body compression fractures. IMPRESSION: 1. Right nephrolithiasis with perinephric stranding and fluid but no definite obstructing ureteral stone identified. The findings may represent sequelae of a recently passed stone but the differential includes pyelonephritis. Recommend correlation clinically. Findings discussed with Dr. Guevara on 12/18/16 at 9:10 AM. Dictated by: Denzel Partida M.D. on 12/18/2016 at 8:40 Approved by: Denzel Partida M.D. on 12/18/2016 at 9:10 Brief History This is a 81-year-old female who awoke in the middle of the night with right sided flank pain. She also did notice some blood in her urine after she came to the emergency room. Her UA here did have many red blood cells with small amount of WBCs and moderate bacteria and few epithelial cells. She also had trace leukocyte esterase along with negative nitrites She denies any fevers chills did have some nausea but no vomiting. The nausea has resolved. She denies any history of known history of kidney stones. Her evaluation here includes a CT of abdomen and pelvis with contrast which results are as below: IMPRESSION: 1. Right nephrolithiasis with perinephric stranding and fluid but no definite obstructing ureteral stone identified. The findings may represent sequelae of a recently passed stone but the differential includes pyelonephritis. Recommend correlation clinically. Findings discussed with Dr. Guevara on 12/18/16 at 9:10 AM. Dictated by: Denzel Partida M.D. on 12/18/2016 at 8:40 Approved by: Denzel Partida M.D. on 12/18/2016 at 9:10 Hospital Course # Possible pyelonephritis, acute, present on admission Initiate IV Rocephin 2 g daily Await urine culture and sensitivities IV fluid hydration Final urine cultures did show mixed urogenital delilah Patient was initiated on IV Rocephin and at discharge will complete 5 days of Keflex 500 mg by mouth 4 times a day to complete a course of antibiotics #Hematuria, acute, present on admission May be related to above workup be secondary to possible renal stone as her R many of them seen but none within the ureter and one may have passed Strain urine she can DC at discharge Urology consult at by SHIRLEY Hayden which did not get done while in house Most likely her hematuria secondary to ureteral stone which passed prior to getting CT done. Recommend outpatient neurology consultation but will defer ordering this to primary care provider. # Atrial fibrillation, chronic, present on admission Continue with current medication regimen # Anticoagulation on warfarin, chronic, present on admission Pharmacy to manage Continue same dosing prior to admission # Type II diabetes, chronic, present on admission Continue with home regimen but will hold her metformin Placed on subcutaneous lispro medium dose protocol # DVT prophylaxis Therapeutic warfarin # CODE STATUS Full code Exam Vital Signs (Last) Date Time Temp Pulse Resp B/P Pulse Ox O2 Delivery O2 Flow Rate FiO2 12/19/16 09:39 36.6 63 18 114/59 96 Room Air 12/18/16 21:15 2.00 Test 12/18/16 04:20 12/18/16 05:10 12/19/16 06:29 Hold Blue Top Tube Received (Received) Hemoglobin A1c 7.4% (4.8-5.6) Magnesium Level 1.9mg/dL (1.6-2.6) Lipase 49U/L (13-60) Hold Red Top Tube Received (Received) Hold Ibrahim Top Tube Received (Received) Digoxin Level 0.7nG/mL (0.9-2.0) Urine Color Bloody (YELLOW) Urine Appearance Cloudy (CLEAR,HAZY) Urine pH 6.0 (5.0-8.0) Urine Specific [place] 1.025 (1.003-1.035) Urine Protein 100mg/dL (NEG,TRACE) Urine Glucose (UA) 100mg/dL (NEGATIVE) Urine Ketones Negativemg/dL (NEGATIVE) Urine Occult Blood Large (NEGATIVE) Urine Nitrite Negative (NEGATIVE) Urine Bilirubin Negative (NEGATIVE) Urine Urobilinogen Normalmg/dL (NORMAL) Urine Leukocyte Esterase Trace (NEGATIVE) Urine RBC Packed/hpf (0-2) Urine WBC 0-5/hpf (0-5) Urine Epithelial Cells Few/hpf (NONE-MOD) Urine Crystals None seen (NONE SEEN) Urine Bacteria Moderate/hpf (NONE-FEW) Urine Hyaline Casts Rare/lpf (NONE) Urine Granular Casts None seen (NONE SEEN) Urine Waxy Casts None seen (NONE SEEN) Urine Red Blood Cell Casts None seen (NONE SEEN) Urine White Blood Cell Casts None seen (NONE SEEN) Urine Mucus None seen (None Seen) Urine Trichomonas None seen (NONE SEEN) Urine Yeast None (NONE SEEN) Urinalysis Comment None Urine Culture Reflexed Indicated White Blood Count 8.7th/mm3 (3.8-10.1) Red Blood Count 4.29mil/mm3 (3.90-5.20) Hemoglobin 13.1g/dL (12.0-15.6) Hematocrit 39.2% (35.0-46.0) Mean Corpuscular Volume 91.4fL (81-100) Mean Corpuscular Hemoglobin 30.5pg (27.0-35.0) Mean Corpuscular Hemoglobin Concent 33.4% (32.0-37.0) Red Cell Distribution Width 14.7% (12.3-15.4) Platelet Count 152bil/L (150-400) Neutrophils (%) (Auto) 62.8% (40-74) Lymphocytes (%) (Auto) 23.3% (14-46) Monocytes (%) (Auto) 10.7% (4-12) Eosinophils (%) (Auto) 2.2% (0-5) Basophils (%) (Auto) 0.5% (0-3) Prothrombin Time 26.9sec (8.1-12.5) Prothromb Time International Ratio 2.47ratio Sodium Level 141mEq/L (134-144) Potassium Level 4.2mEq/L (3.5-5.2) Chloride Level 106mEq/L (97-108) Carbon Dioxide Level 23mmol/L (18-29) Blood Urea Nitrogen 21mg/dL (8-27) Creatinine 0.96mg/dL (0.57-1.00) Estimat Glomerular Filtration Rate 80mL/min (>59) Glucose Level 143mg/dL (60-99) Calcium Level 8.5mg/dL (8.5-10.1) Total Bilirubin 0.3mg/dL (0.0-1.2) Aspartate Amino Transf (AST/SGOT) 16U/L (0-50) Alanine Aminotransferase (ALT/SGPT) 15U/L (0-32) Alkaline Phosphatase 54U/L (25-165) Total Protein 5.4g/dL (6.4-8.4) Albumin 3.0g/dL (3.4-5.0) Discharge Medications Discharge Medications Atorvastatin (Lipitor) 10 Mg Tab 10 MG PO HS (Reported) Cephalexin (Keflex) 500 Mg Capsule 500 MG PO QID Prescribed by: LISA GUEVARA MD Digoxin (Digoxin) 125 Mcg Tablet 125 MCG PO DAILY (Reported) Gabapentin (Gabapentin) 100 Mg Capsule 100 MG PO AM (Reported) Gabapentin (Gabapentin) 300 Mg Capsule 300 MG PO HS (Reported) Glipizide (Glipizide) 5 Mg Tablet 10 MG PO BID (Reported) Insulin Glargine (Lantus U100 Insulin Vial) 100 Unit/Ml Vial 35 UNIT SUBQ BID ( Reported) Insulin Human Lispro (HumaLOG U100 Insulin Vial) 100 Unit/Ml Unit Unknown Dose SUBQ per sliding scale (Reported) Check blood sugars before meals and at bedtime. Use correction factor only before meals. Blood Sugar Lispro Correction: <151, 0 units; 151-175, 1 unit; 176-200, 2 units; 201-225, 3 units; 226-250, 4 units; 251-275, 5 units; 276-300 , 6 units; 301-325, 7 units; 326-350, 8 units; 351-375, 9 units; 376-400, 10 units; >400, 12 units. Losartan Potassium (Losartan Potassium) 25 Mg Tablet 25 MG PO HS (Reported) Metformin (Metformin) 500 Mg Tablet 500 MG PO BID (Reported) Ranitidine (Ranitidine) 150 Mg Capsule 150 MG PO BID (Reported) Sotalol HCl (Sotalol) 160 Mg Tablet 160 MG PO BID (Reported) Warfarin Sodium (Warfarin Sodium) 2 Mg Tablet 2 MG PO 5 x weeks (Reported) Warfarin Sodium (Warfarin Sodium) 4 Mg Tablet 4 MG PO 2Xweekly Mon and Fri ( Reported) As needed Nitroglycerin SL (Nitrostat) 0.4 Mg Tab.subl 0.4 MG SL Q5MIN PRN PRN For Chest Pain (Reported) Followup Plan Discharge Diet: Diabetic Discharge Activity: Other (as tolerated) Follow-up with PCP in: 1 week Lisa Guevara MD Dec 19, 2016 10:19
[2016-12-19] MEDS: Insulin GLARgine 100 Unit/mL Syringe SUBQ SCH (10:21)
--- NOTE | 2016-12-19 11:02 | NUR ---
[facility] signed
--- NOTE | 2016-12-19 11:05 | PCM.HPSURG ---
Subjective Date of Service: Dec 19, 2016 Referring Provider: Admitting Physician: Lisa Guevara MD Primary Care Physician: Rufus Bazzi DO Attending Physician: Lisa Guevara MD Chief Complaint RIGHT nephrolithiasis, RIGHT flank pain History of Present Illness Ms Donovan is a very pleasant 81 F who reported to the ER yesterday with RIGHT flank pain. She notes she had red urine at the time as well. CT scan demonstrated RIGHT nephroliths though no obstructing stones or hydro. There was also perinephric stranding. Her WBC was mildly elevated, and today it is normal. Today, she states she has no pain. She notes no antecedent h/o stones to her knowledge. She has not had fever or chills. She is tolerating diet w/o n/v. Allergy Allergies: Coded Allergies: VIKA Inhibitors (Verified Allergy, Unknown, cough, 07/18/16) niacin (Verified Allergy, Unknown, flushing, 07/18/16) pantoprazole (Verified Allergy, Unknown, pancreatitis, 07/18/16) lorazepam (Verified Adverse Reaction, Severe, REQUIRED INTUBATION TOO DIFF. 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) Denies:: Dysphagia Sinus Problem Cardiovascular History History of Heart Problems?: Yes Cardiovascular History: Positive for:: Atrial Fibrillation (Paroxysmal fib/ flutter) Hypertension Irregular Heartbeat (Afib controlled) Denies:: AICD Cardiac Surgery Chest Pain Congestive Heart Failure Edema Heart Murmur Pacemaker Rheumatic Fever Thrombophlebitis Respiratory History of Respiratory Problem: No Respiratory History: Positive for:: Use of C-PAP Machine Denies:: Asthma COPD Chest Surgery Dyspnea Emphysema Hemoptysis Oxygen Administration Pneumonia Tuberculosis Neurological History Hx Neurologic Problems?: Yes Neurological History: Positive for:: Dizziness Denies:: Alzheimer's Disease CVA Dementia (some short term memory impairment per H+P) Headaches Parkinson's Disease Seizures Gastrointestinal History HX of GI Problems?: Yes Gastrointestinal History: Positive for:: Gastroesphageal Reflux Heartburn Hiatal Hernia Denies:: Diverticulitis Gastrointestinal Bleeding Hepatitis Rectal Bleeding Genitourinary History Hx of Gu Problems?: Yes Genitourinary History: Positive for: Kidney Stones (diagnosis 12/18) Denies: HX of Hemodialysis Urinary Tract Infection Female/Male History Reproductive History Female: Denies: Currently ? Endometriosis Pelvic Inflammatory DX Problems with Breasts? Skin History Skin History: Positive for:: History Skin Disorders? (wound right index finger ) Denies:: Pressure Ulcers Musculoskeletal History Hx Musculoskeletal Problems?: Yes Musculoskeletal History: Positive for:: Back Injury (spinal stenosis- neuropathy) Musculoskeletal Trauma (osteomyelitis right index finger current problem) Denies:: Joint Replacement Psycho Social History Hx of Psycho/Social Problems?: No Psycho Social History: Positive for:: Hx Depression Denies:: Anxiety Bipolar Disorder Suicide Attempt Other History Hx Any Other Health Problems?: Yes Other History: Positive for:: Hospitalization Denies:: Cancer Thyroid Disease Diabetes: Yes (Insulin)Bedside Blood Glucose: 121 Social History Hx Alcohol Use: NoHx Substance Use: NoHx Tobacco Use: No Smoking Status: Never Smoker Living Arrangement: with Family H&P Surgical Exam Exam General: Alert Abdomen: Soft, Non-distended, Other (obese, w/o TTP) Extremities: Other (BLE edema +2-3) Neuro: Cranial Nerves 2-12 nl Catheters: None Assessment & Plan Assessment 81 Fwith RIGHT nephrolithiasis and resolved RIGHT flank pain Plan: We discussed f/u as outpatient to consider her options - She voiced understanding Urology office will call for f/u Brissa Lee MD Dec 19, 2016 11:05
--- NOTE | 2016-12-19 12:07 | NUR ---
Social Work- Initial Assessment Data: See Initial Assessment. Pt is a 81 year old female admitted 12/18/16 for renal colic/diabetes/renal insufficiency per H&P. Pt's insurance is Medicare and [employer]. PCP is Rufus Bazzi DO. EMR reviewed. SW met with patient and at bedside to discuss discharge planning, SW role explained. Pt is alert and oriented x3. Pt resides at home with [place] [address] where she remains independent with her ADLs. [place], [place] drive. Pt has no HH or SNF history. Pt has not LTC or VA benefits. SW discussed DPOA/Advance Directive with patient, encouraged pt to bring in a completed copy. SW left number and plan on white board. Pt's to provide transportation home at discharge. No anticipated discharge needs. SW continues to follow. Assessment: Pt who is independent at [place]. Plan: Pt to discharge home with medically stable, to transport. No anticipated discharge needs. SW continues to follow. Shivani Contreras MSW Addendum: 12/19/16 at 1237 by ALIYAH CONTRERAS SS Amended: Links added.
--- NOTE | 2016-12-19 12:20 | NUR ---
Social Work- Discharge Data: EMR reviewed. Pt is on day 1 of hospitalization her H&P. Pt medically stable and discharging today. SW spoke with pt and at bedside to review discharge plan. No discharge needs. Pt to discharge home with to transport. All updated and agreeable to plan. Assessment: Pt who is independent at baseline. Plan: Pt to discharge home today with to transport. No discharge needs. All updated and agreeable to plan. Shivani Hodges MSW
--- NOTE | 2016-12-19 13:32 | NUR ---
Discharge Pt DC home with and daughter. All medications discussed with them in detail with plan to see Dr. Lee in outpt setting. All questions answered. Pt has denied pain since last night and feels she has returned to her baseline.
[2017-03-25] MEDS ORDERED: FUR20 PO (15:50)
[2017-03-25] MEDS ORDERED: METR45CR2 TOP (15:57)
[2017-03-25] MEDS ORDERED: DICL100G8 TOPICAL (15:57)
[2017-03-25] MEDS ORDERED: INSU100I (15:57)
== END 2016-12-19 12:47 | disposition home or self-care (01) | DRG 690 ==
LOC: SED 03:59 → OSC 07:30 → OBSVTOIN 07:30
PROVIDERS: ADMIT Specialist; ATTEND Specialist
DX: N10 Acute pyelonephritis (principal); R31.9 Hematuria, unspecified; I10 Essential (primary) hypertension; E78.5 Hyperlipidemia, unspecified; I73.9 Peripheral vascular disease, unspecified; I48.2 Chronic atrial fibrillation; M48.00 Spinal stenosis, site unspecified; E11.40 Type 2 diabetes mellitus with diabetic neuropathy, unspecified; Z79.01 Long term (current) use of anticoagulants

== ENCOUNTER 2017-03-26 02:28 | Day surgery (SDC) | payer MEDICARE, OTHER ==
[~2017-03-26 02:28] MED LIST changes: +ATRV10T PO; +DICL100G8 TOPICAL; +FUR20 PO; -INSLIS SUBQ; +INSU100I; -METF1000 PO; +METF500T4 PO; +METR45CR2 TOP; -ROSU5TAB PO
== END 2017-03-26 23:59 | disposition home or self-care (01) ==
LOC: SOUO 02:28
PROVIDERS: ATTEND Internal Medicine
DX: I48.1 Persistent atrial fibrillation (principal)

== ENCOUNTER 2017-04-05 00:10 | Day surgery (SDC) | payer MEDICARE, OTHER ==
[~2017-04-05] VITALS: Ht 152.4 cm; Wt 79.1 kg
[2017-04-05] MEDS ORDERED: Propofol 10,000 mCg/mL 20 mL Inj ONE (00:11)
[2017-04-05] MEDS ORDERED: Lactated Ringer's 1,000 ML IV ONE (05:00)
[2017-04-05] MEDS ORDERED: 0.9% Sodium Chloride 1,000 ML IV SCH (06:00)
[2017-04-05] MEDS ORDERED: Benzoc-Butamben-Tetraca Spray 20 Gm Spray TOPICAL PRN (08:10)
[2017-04-05 11:08] VITALS: BP 150/62; PULSE 68; RESP 16; O2SAT 96
[2017-04-05 11:23] LABS: INR 2.28 ratio
[2017-04-05] MEDS ORDERED: Lactated Ringer's 1,000 ML IV SCH (11:39)
[2017-04-05] MEDS ORDERED: Lactated Ringer's 500 ML IV PRN (11:39)
--- NOTE | 2017-04-05 11:39 | PCM.HPANE ---
Patient Data Date of Service: Apr 05, 2017 Surgeon Admitting Provider: Attending Provider:Dayan Patel MD Primary Care Physician:Rufus Bazzi DO Other Provider:Reed Lindsay Anesthesia Reason for Visit Atrial Fibrillation Ht/WT & BMI Height (Feet): 5 Height (Inches): 0.00 Weight (Kilograms): 79.100 Body Mass Index 34.24 Allergies Coded Allergies: VIKA Inhibitors (Verified Allergy, Unknown, cough, 07/18/16) niacin (Verified Allergy, Unknown, flushing, 07/18/16) pantoprazole (Verified Allergy, Unknown, pancreatitis, 07/18/16) lorazepam (Verified Adverse Reaction, Severe, REQUIRED INTUBATION TOO DIFF. TO AWAKEN, 07/18/16) Past Anesthesia History Anesthesia History: Positive for:: Anesthesia Reactions (DIFFICULTY WITH ATIVAN AND REQUIRED INTUBATION) Diabetes History Hx Diabetes?: Yes (Insulin) MRSA MRSA: No Medications Blood Thinner: Coumadin Hypertension Medication: Yes Home Meds Incl Beta Jet: No Reported Medications Metronidazole (Metrocream)45 Gm Cream..g.1 Applic TOP BID PRN Skin issue #45 GM Ref 0 03/25/17 Diclofenac Gel (Voltaren Gel)100 Gm Tube1 Applic TOPICAL QID PRN Skin issue #1 TUBE 03/25/17 Furosemide 20 Mg Tab10 Mg PO Q2DAY 30 Days Ref 0 03/25/17 Atorvastatin (Lipitor)10 Mg Tab10 Mg PO HS Ref 0 12/18/16 Metformin 500 Mg Tablet1,000 Mg PO BID Ref 0 12/18/16 Insulin Glargine (Lantus U100 Insulin Vial)100 Unit/Ml Vial45 Unit SUBQ DAILY # 1 VIAL Ref 0 12/18/16 Warfarin Sodium 4 Mg Tablet4 Mg PO DAILY 30 Days Ref 0 take 4mg wednesday, wed, wed, sat 10/21/15 Warfarin Sodium 2 Mg Tablet2 Mg PO DAILY 30 Days Ref 0 take 2mg every wednesday, , 10/21/15 Sotalol HCl (Sotalol)160 Mg Ienvki346 Mg PO BID 30 Days Ref 0 10/21/15 Ranitidine 150 Mg Gowcpqa986 Mg PO BID Ref 0 10/21/15 Nitroglycerin SL (Nitrostat)0.4 Mg Tab.subl0.4 Mg SL Q5MIN PRN For Chest Pain # 1 BOTTLE 10/21/15 Losartan Potassium 25 Mg Ksmviw32 Mg PO HS 10/21/15 Glipizide 5 Mg Tbxetf66 Mg PO BID 30 Days 10/21/15 Gabapentin 300 Mg Muiynzp267 Mg PO HS Ref 0 10/21/15 Gabapentin 100 Mg Kopbemz079 Mg PO AM 30 Days Ref 0 10/21/15 Discontinued Reported Medications Insulin Aspart (NovoLOG U-100 Pen)100 Unit/Ml Insuln.pen10 Qpm 03/25/17 Digoxin 125 Mcg Cqcfqo346 Mcg PO DAILY #30 TABLET Ref 0 10/21/15 History History of ENT Problems?: Yes HEENT History: Positive for:: 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) Denies:: Dysphagia Glaucoma Sinus Problem Denture Type: None Teeth Condition: Within Normal Limits Hx of Heart Problems?: Yes Cardiovascular History: Positive for:: Atrial Fibrillation (Paroxysmal fib/ flutter) Edema Hypertension Irregular Heartbeat (Afib controlled) Denies:: AICD Cardiac Surgery Chest Pain Congestive Heart Failure Heart Murmur Pacemaker Peripheral Vascular Rheumatic Fever Thrombophlebitis Hx of Respiratory Problem?: No Respiratory History: Positive for:: Use of C-PAP Machine Denies:: Asthma COPD Chest Surgery Dyspnea Emphysema Hemoptysis Oxygen Administration Pneumonia Tuberculosis Hx Neurologic Problems?: Yes Neurological History: Positive for:: Dizziness Denies:: Alzheimer's Disease CVA Dementia (some short term memory impairment per H+P) Headaches Parkinson's Disease Seizures Hx of GI Problems?: Yes Hx of Problems?: Yes Genitourinary History: Positive for:: Kidney Stones (diagnosis 12/18) Denies:: HX of Hemodialysis Urinary Tract Infection HX of Peritoneal Dialysis: No Female Hx: Denies:: Currently Endometriosis Pelvic Inflammatory Problems with Breasts? Skin History: Positive for:: History Skin Disorders? (wound right index finger ) Denies:: Pressure Ulcers Hx Musculoskeletal Problems?: Yes Musculoskeletal History: Positive for:: Back Injury (spinal stenosis- neuropathy) Musculoskeletal Trauma (osteomyelitis right index finger current problem) Denies:: Joint Replacement Hx of Psycho/Social Problems?: No Psycho Social History: Positive for:: Hx Depression Denies:: Anxiety Bipolar Disorder Suicide Attempt Hx Surgeries?: Yes (mikayla, cataracts, corneal transplants, right index finger amputation) Hx Any Other Health Problems?: Yes Other History: Positive for:: Hospitalization Denies:: Cancer Thyroid Disease History Blood Transfusions: Positive for:: Accept Blood Products? Denies:: Blood Transfuse Reaction Blood Transfusions Hx Diabetes: Yes (Insulin) Hx Alcohol Use: NoHx Substance Use: No Smoking Status: Never Smoker Have You Smoked inLast 12 mo: No Stop/Bang Risk Assessment Category Category 1A: Patient has history of documented sleep apnea, and HAS NOT received any narcotic, sedative or anesthesia administration during this stay. Category 1B: Patient has history of documented sleep apnea, and HAS received any narcotic , sedative or anesthesia administration during this stay Category 2: Patient has SUSPECTED Obstructive Sleep Apnea, and HAS received any narcotic , sedative or anesthesia administration during this stay. Category 3: Patient has SUSPECTED Obstructive Sleep Apnea and HAS NOT received narcotic, sedative or anesthesia administration during this stay. Category 4: Outpatient in Procedural Areas with known sleep apnea or who screen positive for High Risk via the STOP/BANG questionnaire. Exam Exam Vital Signs Vital Signs Date Time Temp Pulse Resp B/P Pulse Ox O2 Delivery O2 Flow Rate FiO2 04/05/17 11:08 37.0 68 16 150/62 96 Room Air General Appearance: Alert, Oriented X3, Cooperative HEENT/AIRWAY: MP 2 Lungs: Normal Air Movement Heart: Exam Unremarkable Meds/Labs/Diagnostics Labs Test 04/05/17 11:00 Plan Impression Patient chart reviewed, patient interviewed and anesthestic plan with risks, benefits, and alternatives discussed, and informed consent obtained. ASA Physical Status: ASA3 Severe Disease (CAD) Anesthetic Plan: GA Bene/Risks/Altern/Consents: Yes HP Complete Prior to Induction: Yes Rancho Moy MD Apr 05, 2017 11:39
[2017-04-05] MEDS ORDERED: Labetalol 5 mg/mL 4 mL Inj IV PRN (11:40)
[2017-04-05] MEDS ORDERED: EPHEDrine Sulfate 50 mg/mL Inj IVPUSH PRN (11:40)
[2017-04-05] MEDS ORDERED: Dexamethasone 4 mg/mL Inj IVPUSH PRN (11:40)
[2017-04-05] MEDS ORDERED: Phenylephrine 10,000 mCg/mL Inj IVPUSH PRN (11:40)
[2017-04-05] MEDS ORDERED: Ondansetron 2 mg/mL 2 mL Inj IVPUSH PRN (11:40)
[2017-04-05] MEDS ORDERED: fentaNYL-PF 50 mCg/mL 2 mL Inj IVPUSH PRN (11:40)
[2017-04-05] MEDS ORDERED: MetoCLOpramide 5 mg/mL 2 mL Inj IVPUSH PRN (11:40)
[2017-04-05] MEDS ORDERED: Atropine 0.4 mg/mL Inj IVPUSH PRN (11:40)
--- NOTE | 2017-04-05 11:46 | NUR ---
Admit [facility] Admitted to [facility] about 1045. VSS. Denies pain. IV started and labs sent. PT/INR 2.3/27.6 per [facility] machine. BG 95. See EMR for further info and assessment. Procedure and recovery reviewed and verbalizes understanding. Dr. Patel in and consented pt. Anesthesia in and consented pt. Awaiting Echo.
[2017-04-05 12:02] VITALS: BP 111/71; RESP 20
[2017-04-05 12:15] VITALS: BP 99/79; PULSE 60; RESP 22; O2SAT 96
--- NOTE | 2017-04-05 12:18 | PCM.ANEP1 ---
Post Anesthesia PACU Phase 1 Assessment Date of Service: Apr 05, 2017 Vital Signs Vital Signs Date Time Temp Pulse Resp B/P Pulse Ox O2 Delivery O2 Flow Rate FiO2 04/05/17 12:15 60 22 99/79 96 Nasal Cannula 2.00 04/05/17 11:08 37.0 68 16 150/62 96 Room Air Anesthetic Administered: GA Level of Alertness: Awake, talking JAIME's with Equal Strength: Yes Pain: No Nausea or Vomiting: No CV Function & Hydration Stable: Yes Airway Device: Oxygen Delivery: Nasal Cannula Lungs: Normal Air Movement Dermatome Level: Full Sensation PACU Phase 2 Assessment Complications: No Follow up Care: N/A Patient Instructions Provided: N/A Rancho Moy MD Apr 05, 2017 12:18
[2017-04-05 12:30] VITALS: BP 110/55; PULSE 71; RESP 18; O2SAT 96
[2017-04-05 12:45] VITALS: BP 127/67; PULSE 71; RESP 20; O2SAT 96
--- NOTE | 2017-04-05 13:22 | NUR ---
Procedure/Recovery/Discharge SHANKAR Procedure commenced about 1145. Cardioversion done with 200J x1 at 1202 with return to SR-SB with 1st degree AVB and occ. PVC's. Anesthesia provided care during procedures, see their flowsheet. Care resumed shortly after as pt. arousable. See EMR for info. Back to baseline at 1245. Taking ice chips without signs of nausea or aspiration. Discharge instructions given, see sheets. Pt. and verbalize understanding. IV discontinued intact. Assisted to dress and to bathroom. Discharged via w/c per baseline with all belongings in no distress at 1315.
--- NOTE | 2017-04-06 09:59 | PROCED ---
[address] [address] PROCEDURE NOTE PATIENT: YUSRA FLORES : 1935 MR#: [id number] ADMIT: 04/05/2017 JOB ID: [id number] DATE OF SERVICE: 04/05/2017 POSTOPERATIVE DIAGNOSIS(ES): PREOPERATIVE DIAGNOSIS(ES): SURGEON: Dayan Patel MD PROCEDURES PERFORMED: DC cardioversion. INDICATIONS: Symptomatic atrial fibrillation with associated heart failure symptoms. DESCRIPTION OF PROCEDURE: Informed consent was obtained. Patient brought to the [facility] in a fasting state. As the patient had 1 short lived subtherapeutic INR transesophageal echo was planned. This revealed evidence for a large atrial appendage with spontaneous contrast, but no evidence for thrombus in the sample segments. Based upon this, we proceeded to cardioversion. Pads were placed in the AP position. Anesthesia was provided by the anesthesia service. The patient then received one 200 joule biphasic synchronized shocks to successful conversion in sinus rhythm. The patient tolerated the procedure well. IMPRESSION: 1. Successful direct current cardioversion from atrial fibrillation to sinus rhythm.
--- NOTE | 2017-04-06 12:54 | DRSVH ---
[facility] [address] [place] [address] Echocardiogram Report Name: YUSRA FLORES JStudy Date: 04/05/2017 [facility] Exam Location: [facility] Gender: Female : 1935 Age: 82 yrs Reason For Study: Atrial fibrillation Ordering Physician: Zelda Patel Performed By: Dayton Joy Interpretation Summary 1. Grossly normal left ventricular systolic function. 2. No evidence for thrombus in the sampled segments of the left atrium or left atrial appendage Procedure: Informed consent for Transesophageal Echocardiogram, and use of a contrast agent as needed, was obtained prior to the procedure. The patient was brought to the [facility] in a fasting state. An intravenous line was placed. A topical anesthetic agent was used for oropharangeal anesthesia. A bite block was inserted. Sedation was managed by anesthesiologist; see anesthesiology notes for details. The patient was in atrial fibrillation with controlled ventricular rate during the exam. There were no complications. Left Ventricle: Grossly normal systolic function. Atria: The left atrial appendage is prominent with evidence for spontaneous contast (which shifts with each beat) but no thrombus appreciated in the sampled segments of the left atrium and left atrial appendage. Mitral Valve: The leaflets appear thin with normal excursion. Aortic Valve: The aortic valve is trileaflet. The aortic valve opens well. There is no aortic regurgitation. Tricuspid Valve: The leaflets appear thin with normal excursion. Pulmonic Valve: The pulmonic valve is not well seen, but is grossly normal. Reading Physician:12:53 PM
== END 2017-04-05 23:59 | disposition home or self-care (01) ==
LOC: SOUO 00:10
PROVIDERS: ATTEND Internal Medicine
DX: I48.1 Persistent atrial fibrillation (principal); Z79.899 Other long term (current) drug therapy; Z79.01 Long term (current) use of anticoagulants; I10 Essential (primary) hypertension; E78.5 Hyperlipidemia, unspecified; I25.10 Atherosclerotic heart disease of native coronary artery without angina pectoris; G47.33 Obstructive sleep apnea (adult) (pediatric); E11.40 Type 2 diabetes mellitus with diabetic neuropathy, unspecified; Z79.4 Long term (current) use of insulin; Z79.84 Long term (current) use of oral hypoglycemic drugs
CPT/HCPCS: 36415; 80048; 85610; 92960; 93005; C8925; J2250; J7030

== ENCOUNTER 2017-06-30 00:36 | Day surgery (SDC) | payer MEDICARE, OTHER ==
[~2017-06-30] VITALS: Ht 152.4 cm; Wt 83.0 kg
[2017-06-30] VITALS (7 sets, daily range): BP systolic 105–145; BP diastolic 61–101; PULSE 66–76; RESP 15–20; O2SAT 94
[~2017-06-30 00:36] MED LIST changes: +ATOR40TA69 PO; -ATRV10T PO; +CHOL5000 PO; +CYAN500L3 SL; -DIGO125T73 PO; -FUR20 PO; -INSU100I
[2017-06-30] MEDS ORDERED: Propofol 10,000 mCg/mL 20 mL Inj ONE (00:37)
[2017-06-30] MEDS ORDERED: Glycopyrrolate 0.2 MG/ML 1mL Inj ONE (00:37)
[2017-06-30] MEDS ORDERED: Dexamethasone 4 mg/mL Inj ONE (00:37)
[2017-06-30] MEDS ORDERED: Rocuronium 10 mg/mL 5 mL Inj ONE (00:37)
[2017-06-30] MEDS ORDERED: Ondansetron 2 mg/mL 2 mL Inj ONE (00:37)
[2017-06-30] MEDS ORDERED: fentaNYL-PF 50 mCg/mL 2 mL Inj ONE (00:37)
[2017-06-30] MEDS ORDERED: Phenylephrine/NS 100 mCg/mL 10 mL Syringe IVPUSH ONE (00:37)
[2017-06-30] MEDS ORDERED: Neostigmine 1 mg/mL 10 mL Inj ONE (00:37)
[2017-06-30] MEDS ORDERED: Lactated Ringer's 1,000 ML IV ONE (06:00)
[2017-06-30] MEDS ORDERED: Benzoc-Butamben-Tetraca Spray 20 Gm Spray TOPICAL PRN (06:45)
[2017-06-30 06:51] LABS: BASOPHILS % (AUTO) 0.5 % (0-3); EOSINOPHILS % (AUTO) 1.5 % (0-5); MONOCYTES % (AUTO) 9.6 % (4-12); Mean Corpuscular Hemoglobin 29.3 pg (27.0-35.0); NEUTROPHILS % (AUTO) 70.1 % (40-74); Platelet Count 165 bil/L (150-400)
[2017-06-30] MEDS ORDERED: ATOR10TA66 PO (07:08)
[2017-06-30 07:20] LABS: INR 1.6 ratio
[2017-06-30] MEDS ORDERED: Heparin 10,000 Unit/1,000 mL NS Premix IV ONE (07:46)
[2017-06-30] MEDS ORDERED: 0.9% Sodium Chloride 3,000 ML ONE (07:47)
[2017-06-30] MEDS ORDERED: Heparin 1,000 Unit/mL 10 mL Inj ONE ×2 (07:47→08:51)
--- NOTE | 2017-06-30 07:52 | PCM.HPANE ---
Patient Data Surgeon Admitting Provider: Attending Provider:Yoandy Bautista MD Primary Care Physician:Navneet Damon DO Other Provider:Nataliya Lindsayingham Anesthesia Reason for Visit AFIB Ht/WT & BMI Height (Feet): 5 Height (Inches): 0.00 Weight (Kilograms): 83.000 Body Mass Index 35.92 Allergies Coded Allergies: VIKA Inhibitors (Verified Allergy, Unknown, cough, 04/05/17) niacin (Verified Allergy, Unknown, flushing, 04/05/17) pantoprazole (Verified Allergy, Unknown, pancreatitis, 04/05/17) lorazepam (Verified Adverse Reaction, Severe, REQUIRED INTUBATION TOO DIFF. TO AWAKEN, 04/05/17) Past Anesthesia History Anesthesia History: Positive for:: Anesthesia Reactions (DIFFICULTY WITH ATIVAN AND REQUIRED INTUBATION) Diabetes History Hx Diabetes?: Yes (Insulin) Type of Diabetes: Type II Glycemic Control: Insulin & Oral Medication MRSA MRSA: No Medications Blood Thinner: Coumadin Hypertension Medication: Yes Home Meds Incl Beta Jet: No Reported Medications Atorvastatin Calcium 10 Mg Opmfsz18 Mg PO DAILY Ref 0 06/30/17 Cholecalciferol (Vitamin D3) (Vitamin D3)5,000 Unit Capsule5,000 Unit PO DAILY 06/29/17 Cyanocobalamin (Vitamin B-12) (B-12)500 Mcg Tab.yrxplv850 Mcg SL DAILY 06/29/17 Metronidazole (Metrocream)45 Gm Cream..g.1 Applic TOP BID PRN Skin issue #45 GM Ref 0 03/25/17 Metformin 500 Mg Tablet1,000 Mg PO BID Ref 0 12/18/16 Insulin Glargine (Lantus U100 Insulin Vial)100 Unit/Ml Vial45 Unit SUBQ DAILY # 1 VIAL Ref 0 12/18/16 Warfarin Sodium 4 Mg Tablet4 Mg PO DAILY 30 Days Ref 0 take 4mg wednesday, wed, wed, sat 10/21/15 Warfarin Sodium 2 Mg Tablet2 Mg PO DAILY 30 Days Ref 0 take 2mg every wednesday, , 10/21/15 Sotalol HCl (Sotalol)160 Mg Hhhfcp294 Mg PO BID 30 Days Ref 0 10/21/15 Ranitidine 150 Mg Nebqbjw700 Mg PO BID Ref 0 10/21/15 Losartan Potassium 25 Mg Rxkvje87 Mg PO HS 10/21/15 Glipizide 5 Mg Jwvkgj26 Mg PO BID 30 Days 10/21/15 Gabapentin 300 Mg Rwynyhm916 Mg PO HS Ref 0 10/21/15 Gabapentin 100 Mg Ywpjygi826 Mg PO AM 30 Days Ref 0 10/21/15 Discontinued Reported Medications Atorvastatin Calcium 40 Mg Losrcl56 Mg PO DAILY Ref 0 06/29/17 Diclofenac Gel (Voltaren Gel)100 Gm Tube1 Applic TOPICAL QID PRN Skin issue #1 TUBE 03/25/17 Nitroglycerin SL (Nitrostat)0.4 Mg Tab.subl0.4 Mg SL Q5MIN PRN For Chest Pain # 1 BOTTLE 10/21/15 Furosemide 20 Mg Tab10 Mg PO Q2DAY 30 Days Ref 0 03/25/17 Atorvastatin (Lipitor)10 Mg Tab10 Mg PO HS Ref 0 12/18/16 History History of ENT Problems?: Yes HEENT History: Positive for:: 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) Denies:: Dysphagia Sinus Problem Denture Type: None Teeth Condition: Within Normal Limits Hx of Heart Problems?: Yes Cardiovascular History: Positive for:: Atrial Fibrillation (Paroxysmal fib/ flutter) Edema Hypertension Irregular Heartbeat (afib ablation today) Denies:: AICD Cardiac Surgery Chest Pain Congestive Heart Failure Heart Murmur Pacemaker Rheumatic Fever Thrombophlebitis Hx of Respiratory Problem?: No Respiratory History: Positive for:: Use of C-PAP Machine Denies:: Asthma COPD Chest Surgery Dyspnea Emphysema Hemoptysis Oxygen Administration Pneumonia Tuberculosis Hx Neurologic Problems?: Yes Neurological History: Positive for:: Dizziness Denies:: Alzheimer's Disease CVA Dementia (some short term memory impairment per H+P) Headaches Parkinson's Disease Seizures Hx of GI Problems?: Yes Hx of Problems?: Yes Genitourinary History: Positive for:: Kidney Stones (diagnosis 12/18) Denies:: HX of Hemodialysis Urinary Tract Infection HX of Peritoneal Dialysis: No Female Hx: Denies:: Currently Endometriosis Pelvic Inflammatory Problems with Breasts? Skin History: Positive for:: History Skin Disorders? (wound right index finger ) Denies:: Pressure Ulcers Hx Musculoskeletal Problems?: Yes Musculoskeletal History: Positive for:: Back Injury (spinal stenosis- neuropathy) Musculoskeletal Trauma (osteomyelitis right index finger current problem) Denies:: Joint Replacement Hx of Psycho/Social Problems?: No Psycho Social History: Positive for:: Hx Depression Denies:: Anxiety Bipolar Disorder Suicide Attempt Hx Surgeries?: Yes (mikayla, cataracts, corneal transplants, right index finger amputation) Hx Any Other Health Problems?: Yes Other History: Positive for:: Hospitalization Denies:: Cancer Thyroid Disease History Blood Transfusions: Positive for:: Accept Blood Products? Denies:: Blood Transfuse Reaction Blood Transfusions Hx Diabetes: Yes (Insulin) Hx Alcohol Use: NoHx Substance Use: No Smoking Status: Never Smoker Have You Smoked inLast 12 mo: No Stop/Bang Risk Assessment Category Category 1A: Patient has history of documented sleep apnea, and HAS NOT received any narcotic, sedative or anesthesia administration during this stay. Category 1B: Patient has history of documented sleep apnea, and HAS received any narcotic , sedative or anesthesia administration during this stay Category 2: Patient has SUSPECTED Obstructive Sleep Apnea, and HAS received any narcotic , sedative or anesthesia administration during this stay. Category 3: Patient has SUSPECTED Obstructive Sleep Apnea and HAS NOT received narcotic, sedative or anesthesia administration during this stay. Category 4: Outpatient in Procedural Areas with known sleep apnea or who screen positive for High Risk via the STOP/BANG questionnaire. Exam Exam Vital Signs Vital Signs Date Time Temp Pulse Resp B/P Pulse Ox O2 Delivery O2 Flow Rate FiO2 06/30/17 06:49 36.7 73 18 105/61 94 Room Air General Appearance: Alert, Oriented X3, Cooperative, No Acute Distress HEENT/AIRWAY: MP 1 Lungs: Clear to Percussion Heart: Regular Rate/Rhythm Meds/Labs/Diagnostics Labs Test 06/30/17 06:44 White Blood Count 9.8th/mm3 (3.8-10.1) Red Blood Count 4.57mil/mm3 (3.90-5.20) Hemoglobin 13.4g/dL (12.0-15.6) Hematocrit 41.6% (35.0-46.0) Mean Corpuscular Volume 91.0fL (81-100) Mean Corpuscular Hemoglobin 29.3pg (27.0-35.0) Mean Corpuscular Hemoglobin Concent 32.2% (32.0-37.0) Red Cell Distribution Width 17.3% (12.3-15.4) Platelet Count 165bil/L (150-400) Neutrophils (%) (Auto) 70.1% (40-74) Lymphocytes (%) (Auto) 17.9% (14-46) Monocytes (%) (Auto) 9.6% (4-12) Eosinophils (%) (Auto) 1.5% (0-5) Basophils (%) (Auto) 0.5% (0-3) Prothrombin Time 17.3sec (8.1-12.5) Prothromb Time International Ratio 1.60ratio Sodium Level 146mEq/L (134-144) Potassium Level 4.0mEq/L (3.5-5.2) Chloride Level 107mEq/L (97-108) Carbon Dioxide Level 26mmol/L (18-29) Blood Urea Nitrogen 24mg/dL (8-27) Creatinine 0.94mg/dL (0.57-1.00) Estimat Glomerular Filtration Rate 82mL/min (>59) Glucose Level 64mg/dL (60-99) Calcium Level 9.3mg/dL (8.5-10.1) Plan Impression Patient chart reviewed, patient interviewed and anesthestic plan with risks, benefits, and alternatives discussed, and informed consent obtained. NPO per Anesth. Guidelines: Yes ASA Physical Status: ASA3 Severe Disease Anesthetic Plan: GA Bene/Risks/Altern/Consents: Yes HP Complete Prior to Induction: Yes David Monterroso MD Jun 30, 2017 07:52
[2017-06-30] MEDS ORDERED: Heparin 25,000 Unit/500 mL 0.45% NS Premix IV ONE (08:16)
[2017-06-30] MEDS ORDERED: 0.9% Sodium Chloride 1,000 ML ONE (08:16)
[2017-06-30] MEDS ORDERED: Heparin 1,000 Units/500 mL NS Premix IV ONE (09:40)
[2017-06-30] MEDS ORDERED: Lactated Ringer's 1,000 ML IV SCH (09:42)
[2017-06-30] MEDS ORDERED: Dextrose 5% 0.9% NaCl 1,000 ML IV SCH (09:45)
--- NOTE | 2017-06-30 10:08 | PCM.ANEP1 ---
Post Anesthesia PACU Phase 1 Assessment Vital Signs Vital Signs Date Time Temp Pulse Resp B/P Pulse Ox O2 Delivery O2 Flow Rate FiO2 06/30/17 06:49 36.7 73 18 105/61 94 Room Air Anesthetic Administered: GA Level of Alertness: Sleepy, easy to arouse Pain: No Nausea or Vomiting: No CV Function & Hydration Stable: Yes Airway Device: none Oxygen Delivery: Simple Mask Lungs: Clear to Percussion PACU Phase 2 Assessment Complications: No Follow up Care: N/A Patient Instructions Provided: N/A David Monterroso MD Jun 30, 2017 10:08
[2017-06-30] MEDS ORDERED: APIX5TAB PO (10:55)
--- NOTE | 2017-07-01 11:32 | DRSVH ---
[facility] [address] [place] [address] Echocardiogram Report Name: YUSRA FLORES JStudy Date: 06/30/2017 Height: 60 in Hospital Exam Location: [facility] Weight: 189 lb Gender: Female BSA: 1.8 m2 : 1935 Age: 82 yrs BP: 140/66 mmHg Reason For Study: Atrial fibrillation Ordering Physician: Davey Cohen Performed By: Britt Vernon Referring Physician: DAVEY COHEN Interpretation Summary There is echogenic structure that is located posterolaterally near the neck of the atrial appendage. It was non-mobile fingerlike projection that stretches over the ostium of the left atrial appendage. There was no other findings that would suggest a thrombus. The left atrial appendage is very large. There was spontaneous contrast and pulse wave Doppler showed a very sluggish flow to/from the appendage. Although the echogenic finding is unlikely a thrombus, due to spontaneous contrast, low flow, and subtherapeutic INR, it was decided to abort catheter based atrial fibrillation for now. I personally reviewed the prior SHANKAR on 04/05/2017 and there appears to be a similar finding but limited views were taken of the left atrial appendage at that image. Consider swithing anticoagulant to NOAC and repeat SHANKAR in 4-6 weeks to see if structure changes in size. Procedure: Informed consent for Transesophageal Echocardiogram, and use of a contrast agent as needed, was obtained prior to the procedure. Comparison is made with the echocardiogram of 04/05/17. The patient was brought to the cardiac catheterization lab in a fasting state. Sedation was managed by anesthesiologist; see anesthesiology notes for details. The transesophageal probe was passed without difficulty. Limited views were obtained. The patient's vital signs, including blood pressure, heart rate, pulse oximetry and cardiac rhythm were monitored throughout the procedure and remained stable. The patient tolerated the procedure well without evidence of orophangeal or esophageal trauma. A 2D transesophageal echocardiogram with spectral and color flow Doppler was performed. The patient was in normal sinus rhythm during the exam. There were no complications. Atria: There is echogenic structure that is located posterolaterally near the neck of the atrial appendage. It was non-mobile fingerlike projection that stretches over the ostium of the left atrial appendage. There was no other findings that would suggest a thrombus. The left atrial appendage is very large. There was spontaneous contrast and pulse wave Doppler showed a very sluggish flow to/from the appendage. Although the echogenic finding is unlikely a thrombus, due to spontaneous contrast, low flow, and subtherapeutic INR, it was decided to abort catheter based atrial fibrillation for now. I personally reviewed the prior SHANKAR on 04/05/2017 and there appears to be a similar finding but limited views were taken of the left atrial appendage at that image. Consider swithing anticoagulant to NOAC and repeat SHANKAR in 4-6 weeks to see if structure changes in size. Reading Physician:AME
== END 2017-06-30 23:59 | disposition home or self-care (01) ==
LOC: SPI 00:36
PROVIDERS: ATTEND Internal Medicine Cardiovascular Disease
DX: I48.1 Persistent atrial fibrillation (principal); Z53.09 Procedure and treatment not carried out because of other contraindication; R93.1 Abnormal findings on diagnostic imaging of heart and coronary circulation; R79.1 Abnormal coagulation profile; I48.4 Atypical atrial flutter; E11.9 Type 2 diabetes mellitus without complications; I10 Essential (primary) hypertension; G47.33 Obstructive sleep apnea (adult) (pediatric); I25.10 Atherosclerotic heart disease of native coronary artery without angina pectoris; E78.5 Hyperlipidemia, unspecified; G25.81 Restless legs syndrome; G89.4 Chronic pain syndrome; Z79.01 Long term (current) use of anticoagulants; Z79.899 Other long term (current) drug therapy; Z79.84 Long term (current) use of oral hypoglycemic drugs; Z79.4 Long term (current) use of insulin
CPT/HCPCS: 36415; 80048; 85025; 85610; 93005; C8925; J1100; J1644; J2370; J2405; J2704; J2710; J3010; J7030; J7040; J7042; J7120